=== PATIENT | male | born 1975 | race Caucasian/White ===

== ENCOUNTER → 2024-06-18 18:59 | Outpatient (REF) | payer OTHER, SELFPAY | LOC: MRI 3T 18:59 | PROVIDERS: ATTENDING PHYSICIAN Physical Medicine & Rehabilitation; FAMILY PHYSICIAN Family Medicine | DX: M54.16 Radiculopathy, lumbar region (principal) | CPT/HCPCS: 72148 ==

== ENCOUNTER → 2024-06-21 10:03 | Outpatient (REF) | payer OTHER, SELFPAY | LOC: RAD 10:03 | PROVIDERS: ATTENDING PHYSICIAN Physical Medicine & Rehabilitation; FAMILY PHYSICIAN Family Medicine | DX: M25.551 Pain in right hip (principal) | CPT/HCPCS: 73502 ==

== ENCOUNTER 2024-08-04 06:22 | Day surgery (SDC) | payer OTHER, SELFPAY ==
--- NOTE | 2024-07-30 10:42 | VNURNOTE ---
Patient is scheduled for an elective R TEJ on 08/04/24- he is a same day patient with Dr Ellis. Spoke with patient prior to surgery. Introduced role of [facility] Liaison. Patient reports that he lives alone in split level house.
There are 0 steps to enter .
There is a powder room on the entry level manager. He will obtain a recliner. He currently functions independently. He will obtain a raised toilet seat. he has a cane and rolling walker.
PCP is Dr Peralta [facility].
Discussed [facility] joint protocol and post surgical plans.
Reviewed that he will have [facility] services initially and will then start outpatient PT.
Patient selects [facility] for his home care needs and will go to [facility] for outpatient PT. Start date TBD
Patient is in agreement with plan and states his mom and dad will be home with him and will assist. Advised to bring RW with him day of surgery. Referral placed in [facility].
Plan: [facility] per [facility] joint protocol 08/04 then outpt PT TBD
[2024-07-31 11:15] LABS: Glycohemoglobin (HgbA1c) 5.2 % (4.0-5.6)
[2024-07-31 13:40] VITALS: BMI 32.1
[2024-08-01 11:44] VITALS: BMI 32.1
[2024-08-04] VITALS (21 sets, daily range): BP systolic 80–147; BP diastolic 41–95; BMI 32.1
[2024-08-04] MEDS: CELEBREX 200 MG PO (07:06)
[2024-08-04] MEDS: TYLENOL 650 MG PO (07:07)
--- NOTE | 2024-08-04 07:08 | W.DS.TRANS ---
DC Summary - General Road Supervisor
-
Discharge Instructions:
Sleep Apnea Risk Low
Discharge Diagnosis/Procedures R TEJ Ellis 08/04/24
Diet As tolerated
Activity With Walker
Driving Restrictions No driving
Bathing Restrictions OK to Shower
Other Services PT
Instructions:
Stand-Alone Forms: Total Hip/Knee Replacement D/C
Changes to Home Medications: Yes
Discharge Medications:
DC Medications w/original date entered in [facility]
[place] Bergamot 1 cap PO DAILY 07/30/24
Vitamin D3 1 cap PO DAILY 07/30/24
krill oil 1 cap PO DAILY 07/30/24
turmeric 1 cap PO DAILY 07/30/24
acetaminophen 325 mg tablet (Tylenol) 650 mg (2 x 325 mg) PO QID #1 tab 08/04/24
aspirin 325 mg tablet 325 mg PO DAILY blood clot prevention #1 tab 08/04/24
celecoxib 100 mg capsule 100 mg PO BID Anti-inflammatory #14 caps 08/04/24
dexamethasone 4 mg tablet 4 mg PO BID inflammation #6 tabs 08/04/24
docusate sodium 100 mg capsule (Colace) 100 mg PO BID stool softner #1 cap 08/04/24
magnesium hydroxide 400 mg/5 mL oral suspension (Milk of Magnesia) 30 ml PO HS PRN Constipation #1 mL 08/04/24
ondansetron 4 mg disintegrating tablet 4 mg PO Q6H PRN n/v #20 tabs 08/04/24
oxycodone 5 mg tablet 5 mg PO Q6H PRN 1 tab moderate pain, 2 tabs severe pain #30 tabs 08/04/24
sennosides 8.6 mg tablet (Senokot) 17.2 mg (2 x 8.6 mg) PO BID laxative #2 tabs 08/04/24
Home Medication Changes
acetaminophen 325 mg tablet (Tylenol) 650 mg (2 x 325 mg) PO QID #1 tab 08/04/24
aspirin 325 mg tablet 325 mg PO DAILY blood clot prevention #1 tab 08/04/24
celecoxib 100 mg capsule 100 mg PO BID Anti-inflammatory #14 caps 08/04/24
dexamethasone 4 mg tablet 4 mg PO BID inflammation #6 tabs 08/04/24
docusate sodium 100 mg capsule (Colace) 100 mg PO BID stool softner #1 cap 08/04/24
magnesium hydroxide 400 mg/5 mL oral suspension (Milk of Magnesia) 30 ml PO HS PRN Constipation #1 mL 08/04/24
ondansetron 4 mg disintegrating tablet 4 mg PO Q6H PRN n/v #20 tabs 08/04/24
oxycodone 5 mg tablet 5 mg PO Q6H PRN 1 tab moderate pain, 2 tabs severe pain #30 tabs 08/04/24
sennosides 8.6 mg tablet (Senokot) 17.2 mg (2 x 8.6 mg) PO BID laxative #2 tabs 08/04/24
Pending Results: No
[2024-08-04] MEDS: NORMOSOL-R/PLASMALYTE-A 1000 IV (07:11)
[2024-08-04] MEDS: ANCEF 5 IV (11:56)
--- NOTE | 2024-08-04 15:26 | W.PN.ORTHO ---
Today's Communication / Plan
-
d/c when stable
Assessment
.
Distal Motor Intact: Yes
Dressing:
Clean, dry and intact.
Assessment:
Presynope/syncopal complaints with nausea and diaphoresis while standing--suspect vasovagal response/orthostasis-check EKG,trop given syncope-check orthostatic BPs-+ Midodrine w/ parameter and IV Compazine w/ IVF D51/2 bolus--monitor and d/c when
stable
Plan
.
Surgery / Date: R TEJ Ellis 08/04/24
DVT Prophylaxis: Aspirin
Activity:
Out of bed.
PT/OT
Discharge Plan: Home w/ Outpatient PT
Subjective
.
.:
Patient resting comfortably.
Vital Signs and Labs
.
Vital Signs and Labs:
Temp Pulse Resp BP Pulse Ox
97.6 F 73 16 123/70 96
08/04/24 10:19 08/04/24 15:00 08/04/24 15:00 08/04/24 15:00 08/04/24 15:00
Physical Exam
-
HEENT: No pallor, cyanosis, or jaundice. Throat clear.
NECK: Supple. No JVD.
RESPIRATORY: Lungs clear to auscultation.
CVS: S1, S2 normal. RRR.� No murmur, rub or gallop.
ABDOMEN: Soft, non-tender. No distension. BS+/normal.
EXTREMITIES: strength equal, no calf pain with palpation
MUSHROOM LABORER: AOx3. No focal deficits. microstrategy developer grossly intact
[2024-08-04 16:12] LABS: Troponin I < 0.012 ng/ml
[2024-08-04] MEDS: ProAmatine 5 MG PO (16:46)
== END 2024-08-04 17:50 | disposition home or self-care (01) ==
LOC: SDS 06:22
PROVIDERS: Physician Assistant Medical; ATTENDING PHYSICIAN Specialist; FAMILY PHYSICIAN Family Medicine
DX: M16.11 Unilateral primary osteoarthritis, right hip (principal); R11.0 Nausea; R61 Generalized hyperhidrosis; R55 Syncope and collapse; E66.9 Obesity, unspecified; I10 Essential (primary) hypertension; E78.5 Hyperlipidemia, unspecified; Z68.32 Body mass index [BMI] 32.0-32.9, adult
CPT/HCPCS: 27130; 73502; 36415; 83036; 84484; 87070; 93005; 97162; C1713; C1776

== ENCOUNTER 2024-08-20 09:59 | Outpatient (RCR) | payer OTHER, SELFPAY | END 2024-08-20 23:59 | disposition home or self-care (01) | LOC: RPT 09:59 | PROVIDERS: ATTENDING PHYSICIAN Specialist; FAMILY PHYSICIAN Family Medicine | DX: Z47.1 Aftercare following joint replacement surgery (principal); Z73.6 Limitation of activities due to disability; R26.89 Other abnormalities of gait and mobility; M25.551 Pain in right hip; M62.81 Muscle weakness (generalized); Z96.641 Presence of right artificial hip joint | CPT/HCPCS: 97010; 97110; 97162 ==

== ENCOUNTER 2024-09-17 08:55 | Outpatient (RCR) | payer OTHER, SELFPAY | END 2024-09-17 10:10 | disposition home or self-care (01) | LOC: RPT 08:55 | PROVIDERS: ATTENDING PHYSICIAN Specialist; FAMILY PHYSICIAN Family Medicine | DX: Z47.1 Aftercare following joint replacement surgery (principal); Z73.6 Limitation of activities due to disability; R26.89 Other abnormalities of gait and mobility; M25.551 Pain in right hip; Z96.641 Presence of right artificial hip joint; M62.81 Muscle weakness (generalized) | CPT/HCPCS: 97010; 97110 ==